=== PATIENT | male | born 1995 | race African-American/Black ===

== ENCOUNTER 2017-01-20 18:40 | Emergency (ER) | payer SELFPAY ==
[~2017-01-20] VITALS: Ht 165.1 cm; Wt 43.6 kg
[2017-01-20 19:16] LABS: HEMATOCRIT 38.5 % (38.0-50.0); MCH 27.5 PG (29.0-34.0); MCHC 35.3 G/DL (30.0-36.0); MCV 77.9 FL (86-99); MEAN PLAT.VOLUME 10.1 uM^3 (9.0-12.4); PLATELET COUNT 286 K/uL (156-360); RBC DIS.WIDTH-CV 11.8 % (11.8-14.6); RBC DIS.WIDTH-SD 32.9 % (39-53); RED BLOOD COUNT 4.94 M/uL (4.00-5.50); WHITE BLOOD COUNT 6.3 K/uL (4.1-10.2)
[2017-01-20 19:25] LABS: ADD MIUA? NO; BILIRUBIN NEGATIVE; BLOOD NEGATIVE; COLOR STRAW ((YELLOW)); GLUCOSE (STRIP) >=500; KETONES NEGATIVE; LEUKOCYTES NEGATIVE; NITRITE NEGATIVE; PROTEIN (STRIP) NEGATIVE; SPECIFIC GRAVITY 1.032 (1.000-1.030); UROBILINOGEN 0.2 MG/DL (0.2-1.0)
[2017-01-20 19:31] LABS: CHLORIDE 98 mEq/L (99-109); SODIUM 134 mEq/L (136-147)
[2017-01-20 19:34] LABS: ANION GAP 11 MEQ/L (2-14)
[2017-01-20 19:35] LABS: TOTAL BILIRUBIN 0.7 mg/dL (0.0-1.0)
[2017-01-20 19:37] LABS: ALKALINE PHOSPHATASE 101 IU/L (3-129); GFR ESTIMATE (CALCULATED) > 59 mL/min/
[2017-01-20 19:38] LABS: UREA NITROGEN (BUN) 8 mg/dL (9-23)
[2017-01-20 19:40] LABS: GLUCOSE 494 mg/dL (70-99); LIPASE 187 U/L (1.0-51.0)
[2017-01-20 20:27] LABS: CARBON DIOXIDE (BICARBONATE) 35.1 MEQ/L (20-31)
[2017-01-20 21:47] LABS: POINT-OF-CARE METER ID UU13113747
[2017-01-20 23:06] VITALS: BP 161/107
[2017-01-20 23:08] LABS: POINT-OF-CARE METER ID UU13113778
== END 2017-01-20 23:07 | disposition home or self-care (01) ==
LOC: EME 18:40
PROVIDERS: Physician Assistant Medical
DX: E11.65 Type 2 diabetes mellitus with hyperglycemia (principal); R19.7 Diarrhea, unspecified; R10.9 Unspecified abdominal pain; J45.909 Unspecified asthma, uncomplicated; F17.200 Nicotine dependence, unspecified, uncomplicated
CPT/HCPCS: 74177; 80053; 81003; 82010; 82803; 82948; 83690; 85027; 99281; 99284; J1885; J7030